=== PATIENT | female | born 1980 | race African-American/Black ===

== ENCOUNTER 2017-12-17 15:30 | Emergency (ER) | payer BC, OTHER ==
[2017-12-17 15:54] VITALS: BP 186/83; PULSE 103; RESP 18; TEMP 98.7
--- NOTE | 2017-12-17 15:59 | ED ---
Lower Extremity Injury HPI - General Chief Complaint: Extremity Injury, Lower Stated Complaint: fall/leg & ankle pain Time Seen by Provider: 12/17/17 15:47 Source: patient, RN notes reviewed Mode of arrival: ambulatory Limitations: physical limitation - History of Present Illness Initial Comments: This is a 37-year-old female who presents to the emergency department with chief complaint of right freitas, ankle and foot pain. Patient states that on Saturday she was in [place], [place] for her daughter's dance competition. She states that she was running late so was running to get there on time. She states that her right foot got caught underneath herself and she fell forward landing on her right freitas. She states that since that time there has been a constant throbbing sensation and pain increases with standing for long periods of time or ambulating. Denies any other injuries or trauma. Denies fever, chills, chest pain, shortness of breath, abdominal pain, nausea or vomiting, constipation or diarrhea, dysuria or hematuria, numbness or tingling, headache or vision changes. - Related Data Home Medications Medication Instructions Recorded Confirmed No Known Home Medications [No 12/17/17 12/17/17 Known Home Medications] Allergies Allergy/AdvReac Type Severity Reaction Status Date / Time No Known Allergies Allergy Verified 12/17/17 15:54 Review of Systems ROS Statement: Those systems with pertinent positive or pertinent negative responses have been documented in the HPI. ROS Other: All systems not noted in ROS Statement are negative. Past Medical History Past Medical History: Pulmonary Embolus (PE) Additional Past Medical History / Comment(s): anemia History of Any Multi-Drug Resistant Organisms: None Reported Past Surgical History: Section Additional Past Surgical History / Comment(s): BROKEN LEFT AND RIGHT FEET. Past Anesthesia/Blood Transfusion Reactions: No Reported Reaction Past Psychological History: No Psychological Hx Reported Smoking Status: Never smoker Past Alcohol Use History: None Reported Past Drug Use History: None Reported - Past Family History Father Family Medical History: Diabetes Mellitus, Myocardial Infarction (IA) Mother Family Medical History: Cancer, Hypertension Additional Family Medical History / Comment(s): COLON CANCER General Exam - General Exam Comments Initial Comments: General: Awake and alert, well-developed; in no apparent distress. HEENT: Head atraumatic, normocephalic. Pupils are equal, round and reactive to light. Extraocular movements intact. Oropharynx moist without erythema or exudate. Neck: Supple. Normal ROM. Cardiovascular: Regular rate and rhythm. No murmurs, rubs or gallops. Chest symmetrical. Respiratory: Lungs clear to auscultation bilaterally. No wheezes, rales or rhonchi. Normal respiratory effort with no use of accessory muscles. Musculoskeletal: Normal range of motion of the right ankle. There is tenderness on palpation of the right lateral malleolus and proximal fifth metatarsal. Tenderness on palpation of proximal freitas. Sensation is intact. Pedal pulses are 2+ equal and palpable bilaterally. No soft tissue swelling or ecchymosis noted. Skin: [place], warm and dry without rashes or lesions. Neurological: Alert and oriented x3. CN II-XII grossly intact. Speech is fluent and answers are appropriate. No focal neuro deficits. Psychiatric: Normal mood and affect. No overt signs of depression or anxiety noted. Limitations: physical limitation Course Vital Signs 12/17/17 15:52 Temperature 98.7 F Pulse Rate 103 H Respiratory 18 Rate Blood Pressure 186/83 O2 Sat by Pulse 100 Oximetry Medical Decision Making - Medical Decision Making This is a 37-year-old female who presents to the emergency department with chief complaint of right lower extremity injury. Patient complains of throbbing pain in her right freitas, ankle and foot after falling on Saturday. X- rays were obtained and revealed no acute fractures or dislocations. Recommended rest, ice, elevation and to take ibuprofen or Tylenol as needed. Patient's vital signs are stable and she is in no acute distress. She is ambulating normally. She'll be discharged home at this time. All questions answered. - Radiology Data Radiology results: report reviewed X-ray right tibia and fibula, foot and ankle impression: There is no acute fracture or dislocation seen. Disposition Clinical Impression: Contusion of right lower extremity Disposition: HOME SELF-CARE Condition: Good Instructions: Contusion in Adults (ED), Leg Sprain (ED) Additional Instructions: Please rest, ice, elevate and take ibuprofen or Tylenol as needed. Please follow up with primary care provider within 1-2 days. Return to emergency department if symptoms should worsen or any concerns arise. Is patient prescribed a controlled substance at d/c from ED?: No Referrals: None,Stated [Primary Care Provider] - 1-2 days Time of Disposition: 16:28
--- NOTE | 2017-12-17 16:13 | XR ---
EXAMINATION TYPE: XR tibia fibula RT, XR foot complete RT, XR ankle complete RT DATE OF EXAM: 12/17/2017 COMPARISON: NONE HISTORY: Pain TECHNIQUE: Frontal, lateral and oblique images of the right ankle and foot are obtained. 2 views of right tibia and fibula are also submitted. COMPARISON: None. FINDINGS: There is no acute fracture/dislocation evident. The joint spaces appear within normal cabral its. The overlying soft tissue appears unremarkable. IMPRESSION: There is no acute fracture or dislocation seen.
== END 2017-12-17 16:35 | disposition home or self-care (01) ==
LOC: EC 15:30
DX: S80.11XA Contusion of right lower leg, initial encounter (principal); M25.571 Pain in right ankle and joints of right foot; M79.671 Pain in right foot; Z98.890 Other specified postprocedural states; W01.0XXA Fall on same level from slipping, tripping and stumbling without subsequent striking against object, initial encounter; Y93.02 Activity, running
CPT/HCPCS: 99283

== ENCOUNTER → 2020-03-21 | Outpatient (CLI) | payer BC ==
--- NOTE | 2020-03-22 07:10 | US ---
EXAMINATION TYPE: US thyroid st tissue head/neck DATE OF EXAM: 03/21/2020 COMPARISON: NONE CLINICAL HISTORY: E04.9 Nontoxic goiter, unspecified. Nontoxic goiter. GLAND SIZE: Right Lobe: 6.5 x 4.8 x 4.3 cm Overall Parenchyma: Heterogenous. Appears enlarged. Left Lobe: 5.3 x 1.4 x 1.9 cm Overall Parenchyma: Homogeneous Isthmus Thickness: 0.25 cm NODULES RIGHT: # of nodules measured on right: 3 1. 1.8 X 1.9 x 1.0 cm hypoechoic-anechoic nodule at the upper pole with well-defined margins. Thi s nodule is wider than tall and shows no intranodular vascularity. Prior size: no prior 2. 1.4 X 1.6 x 1.3 cm hypoechoic nodule at the mid pole with well-defined margins. This nodule is w ider than tall and shows no intranodular vascularity. Prior size: no prior 3. 1.1 X 1.2 x 1.4 cm hypoechoic mixed nodule at the lower pole with well-defined margins. This nod ule is taller than wide and shows no intranodular vascularity. Prior size: no prior LEFT: # of nodules measured on left: 2 1. 0.5 X 0.4 x 0.3 cm complex mixed nodule at the mid pole with well-defined margins. This nodule is wider than tall and shows no intranodular vascularity. Prior size: no prior 2. 1.1 X 0.8 x 0.5 cm heterogeneous solid nodule at the lower pole with poorly defined margins. Thi s nodule is wider than tall and shows intranodular vascularity. Prior size: no prior ISTHMUS: # of nodules measured in the isthmus: 0 Bilateral neck scanned, no evidence of lymphadenopathy. Limited ability to distinguish any possible additional nodules within right thyroid lobe due to heter ogeneity. IMPRESSION: Thyromegaly with multinodular thyroid changes. Correlate for thyroiditis.
== END | disposition home or self-care (01) ==
LOC: RADUSWWP 17:06
PROVIDERS: ATTEND Family Medicine
DX: E04.2 Nontoxic multinodular goiter (principal)
CPT/HCPCS: 76536

== ENCOUNTER → 2020-08-25 | Outpatient (CLI) | payer BC ==
[~2020-08-25] MED LIST: SODIUM CHLORIDE 0.9% 500 ML 500 ML in EMPTY BAG 1 BAG IV PRN; SODIUM FERRIC GLUCONAT-SUCROSE 125 MG in SODIUM CHLORIDE 0.9% 100 ML IVPB NR
[2020-08-25 13:04] VITALS: PULSE 56; RESP 16; TEMP 98.7
[2020-08-25 13:55] VITALS: BP 159/102
== END | disposition home or self-care (01) ==
LOC: PROCWHC3 12:06
PROVIDERS: ATTEND Family Medicine
DX: D50.9 Iron deficiency anemia, unspecified (principal)
CPT/HCPCS: 96365; J2916